=== PATIENT | female | born 1985 | race Two or more races ===

== ENCOUNTER 2023-06-14 13:32 | Emergency (ER) | payer MEDICAID ==
[~2023-06-14] VITALS: Ht 170.2 cm; Wt 133.2 kg
[2023-06-14 15:03] VITALS: BP 111/65; PULSE 88; RESP 16; O2SAT 97
[2023-06-14 17:55] VITALS: TEMP 98
== END 2023-06-14 17:57 | disposition home or self-care (01) ==
LOC: ER 13:35
DX: S82.52XA Displaced fracture of medial malleolus of left tibia, initial encounter for closed fracture (principal); X58.XXXA Exposure to other specified factors, initial encounter; Y93.89 Activity, other specified; Y92.89 Other specified places as the place of occurrence of the external cause; Y99.8 Other external cause status
CPT/HCPCS: 73700; 99284

== ENCOUNTER 2024-05-08 16:14 | Outpatient (CLI) | payer MEDICAID | END 2024-05-08 23:59 | disposition home or self-care (01) | LOC: 64 CT 16:14 | PROVIDERS: ATTEND Podiatrist Foot & Ankle Surgery | DX: S82.899A Other fracture of unspecified lower leg, initial encounter for closed fracture (principal); S82.832A Other fracture of upper and lower end of left fibula, initial encounter for closed fracture; S82.409A Unspecified fracture of shaft of unspecified fibula, initial encounter for closed fracture; S82.392A Other fracture of lower end of left tibia, initial encounter for closed fracture; M25.472 Effusion, left ankle; M25.372 Other instability, left ankle; M89.8X6 Other specified disorders of bone, lower leg; X58.XXXA Exposure to other specified factors, initial encounter; Y93.89 Activity, other specified; Y92.89 Other specified places as the place of occurrence of the external cause; Y99.8 Other external cause status | CPT/HCPCS: 73700 ==